=== PATIENT | female | born 1970 ===

== ENCOUNTER 2017-04-14 09:53 | Day surgery (SDC) | payer SELFPAY ==
[2016-12-14 09:47] VITALS: BMI 37.7
[~2017-04-14 09:53] MED LIST: Lidocaine 1%/Epinephrine 1:100000 30 ml vial IJ STA
[2017-04-14] MEDS ORDERED: ceFAZolin IV 1 gm in Dextrose 1 GM/50 ML BAG IVPB ONE (10:53)
[2017-04-14] MEDS ORDERED: Bupivacaine HCl 0.25% PF (10 ml) Inj ONE (10:53)
[2017-04-14] MEDS ORDERED: Lidocaine/Epinephrine 1% 1:100000 10 ML IJ ONE (10:54)
[2017-04-14] MEDS ORDERED: ceFAZolin IV 2 gm in Dextrose 2 GM/50 ML BAG IVPB ONE (10:54)
[2017-04-14] MEDS ORDERED: Lactated Ringer's 1,000 ML IV ONE (12:21)
[2017-04-14] MEDS ORDERED: Propofol 10 mg/ml Inj (20 ML) ONE (12:33)
[2017-04-14] MEDS ORDERED: Midazolam 2 MG/2 ML VIAL ONE (12:33)
--- NOTE | 2017-04-14 13:31 | PCM.SURG1 ---
Surgeon's Initial Post Op Note - Surgeon's Notes Surgeon: Dr Morfin Refractive Surgeon: Kirstin Segundo, PGY-1 Pre-Operative Diagnosis: Skin lesion of forehead and skin lesion of Right medial thigh Operative Findings: see op report Post-Operative Diagnosis: Skin lesion of forehead and skin lesion of Right medial thigh Operation Performed: Excision of Skin lesion of forehead and Excision of skin lesion of Right medial thigh Specimen/Specimens Removed: Forehead skin lesion and Right medial thigh lesion Estimated Blood Loss: EBL {In ML}: 30 Blood Products Given: N/A Drains Used: No Drains Post-Op Condition: Good Date of Surgery/Procedure: 04/14/17 Time of Surgery/Procedure: 13:31
[2017-04-14] MEDS ORDERED: Oxycodone/Acetaminophen 5/325 mg Tab PO PRN (13:32)
[2017-04-14 16:10] VITALS: BP 116/76; PULSE 68; RESP 18; TEMP 97.6; O2SAT 100
--- NOTE | 2017-04-16 08:06 | OP ---
PROCEDURE DATE: 04/14/2017 PREOPERATIVE DIAGNOSES: 1. Skin lesion of mid forehead scalp area. 2. Skin lesion of right mid inner thigh. POSTOPERATIVE DIAGNOSES: 1. Skin lesion of mid forehead scalp area. 2. Skin lesion of right mid inner thigh. PROCEDURES: 1. Excision of the skin lesion of mid forehead scalp area, 3 x 2 cm size. 2. Layered closure of the wound of forehead, 3 x 2 cm size. 3. Excision of the skin lesion of right mid thigh, 2 x 1 cm size. 4. Layered closure of the wound, 2 x 1 cm size of the right thigh. SURGEON: Arturo Morfin MD [employer] SOFTWARE CONSULTANT: Dr. Lorena Segundo TYPE OF ANESTHESIA: General anesthesia with LMA. ESTIMATED BLOOD LOSS: Around 30 mL. DRAIN: None. PATHOLOGY: 1. The forehead skin lesion was sent for the pathology. 2. Right thigh skin lesion was sent for the pathology. COMPLICATIONS: None. INTRAOPERATIVE FINDINGS: 1. The patient had irregular shaped 3 x 2 cm skin lesion of the mid forehead scalp area. 2. The patient had approximately 2 x 1 cm right thigh skin lesion. DESCRIPTION OF PROCEDURE: On intraoperative steps, this is a 46-year-old female who was diagnosed with forehead skin lesion as well as the right thigh skin lesion. The patient was consented for an excision, brought to the OR, placed supine on an operating table. After induction of anesthesia, the forehead and the right thigh was prepped and draped in the usual sterile fashion. The local anesthesia was injected and an elliptical shaped incision was made to remove the 3 x 2 cm irregular skin lesion in full thickness, and it was sent off the table for the Pathology. Proper hemostasis was achieved. Now, the upper and lower flaps were mobilized due to the large skin defect and first 2-0 Vicryl was used to close the defect. Then 4-0 Monocryl was used for the skin and another layer of the 5-0 nylon was used to do the multilayer closure and after that the dry sterile dressing was applied. Now, the elliptical incision was made surrounding the skin lesion of right mid thigh. After incising skin and subcutaneous tissue, the skin lesion was completely excised from underlying subcutaneous tissue and sent off the table for the Pathology. The wound was irrigated and the wound was closed in 2 layers, the subcu with 2-0 Vicryl, skin with 4-0 Monocryl and dry sterile dressing was applied. The patient tolerated the procedure well. Count of the instrument and gauze was correct. There was no apparent complication. The patient was extubated in the OR, sent to the postanesthesia care unit in stable condition. Arturo Morfin MD
== END 2017-04-14 16:34 | disposition home or self-care (01) ==
LOC: C.SDS 09:53
PROVIDERS: ATTEND Surgery Surgical Critical Care
DX: L82.1 Other seborrheic keratosis (principal); D18.01 Hemangioma of skin and subcutaneous tissue
CPT/HCPCS: 11402; 11423; 12032; 88305; J0690; J2250; J2704; J3010; J7120

== ENCOUNTER 2017-10-11 10:49 | Day surgery (SDC) | payer SELFPAY ==
[2017-10-06 09:22] VITALS: BMI 35.4
[~2017-10-11 10:49] MED LIST changes: +Bupivacaine 0.25% 20 ML INJ IJ ONE; -Lidocaine 1%/Epinephrine 1:100000 30 ml vial IJ STA; +Lidocaine/Epinephrine 1% 1:100000 10 ML IJ ONE; +ceFAZolin IV 1 gm in Dextrose 0 GM/0 ML BAG IVPB ONE
[2017-10-11] MEDS ORDERED: Midazolam 2 MG/2 ML VIAL ONE (11:43)
[2017-10-11] MEDS ORDERED: Propofol 10 mg/ml Inj (20 ML) ONE ×2 (11:43→13:15)
[2017-10-11] MEDS ORDERED: ceFAZolin IV 2 gm in Dextrose 2 GM/50 ML BAG IVPB ONE (12:01)
[2017-10-11] MEDS ORDERED: Lidocaine Hydrochloride 10 ML INJ ONE (12:26)
[2017-10-11] MEDS ORDERED: Oxycodone/Acetaminophen 5/325 mg Tab PO PRN (13:37)
--- NOTE | 2017-10-11 13:37 | PCM.SURG1 ---
Surgeon's Initial Post Op Note - Surgeon's Notes Surgeon: Dr. Morfin Sfd[employer] Technical Architect: Dr. Mary LIPSCOMB, Dr. Chan PGY3 Type of Anesthesia: General Endo Anesthesia Administered By: Dr. Kerns Pre-Operative Diagnosis: Right face skin lesion Operative Findings: see operative report Post-Operative Diagnosis: see operative report Operation Performed: excision of right face skin lesion Specimen/Specimens Removed: skin lesion Estimated Blood Loss: EBL {In ML}: 15 Blood Products Given: N/A Drains Used: No Drains Post-Op Condition: Good Date of Surgery/Procedure: 10/11/17 Time of Surgery/Procedure: 12:00
[2017-10-11] MEDS ORDERED: HYDROmorphone 0.5 mg/0.5 ml ISec IVP PRN (13:38)
[2017-10-11 14:33] VITALS: RESP 16
[2017-10-11 18:11] VITALS: BP 127/79; PULSE 82; TEMP 97.9; O2SAT 100
--- NOTE | 2017-10-12 01:24 | OP ---
Copied To: Arturo Morfin MD Attending MD: Arturo Morfin MD PROCEDURE DATE: 10/11/2017 PREOPERATIVE DIAGNOSIS: Right face lesion, 2 x 2 cm in size. POSTOPERATIVE DIAGNOSIS: Right face lesion, 2 x 2 cm in size. PROCEDURE: Wide local excision of right face lesion with Rhomboid flap closure. SURGEON: Arturo Morfin MD OPERATOR HELPER: Robin Chan, PGY-3; ELDER Baxter. ANESTHESIA: General endotracheal tube anesthesia. ESTIMATED BLOOD LOSS: Around 10 mL. DRAINS: None. PATHOLOGY: The right face skin lesion was sent for the pathology. COMPLICATIONS: None. INTRAOPERATIVE FINDINGS: The patient had a 2 x 2 cm circular lesion on the right upper face and on intraoperative steps, this 47-year-old female was diagnosed with right face lesion and the patient was consented for the excision of the right face lesion, brought to the OR, placed on the operating table after induction of the anesthesia. The right side of the face was prepped and draped in usual sterile fashion. The eye was protected properly after local anesthesia was injected and face lesion was marked and then the rhomboid flap was also marked. First incision was made and full-thickness skin was excised with underlying subcutaneous tissue. Now, another incision was made to create the rhomboid flap, and the rhomboid flap was mobilized and it was sutured with edge off the defects and proper wound closure was done, two-layer wound closure was done; the subcu with 3-0 Vicryl and skin with 4-0 Monocryl, and dry sterile dressing was applied. The patient tolerated the procedure well. The patient was extubated in the OR and sent to the postanesthesia care unit in stable condition. Arturo Morfin MD [facility]
== END 2017-10-11 17:30 | disposition home or self-care (01) ==
LOC: C.SDS 10:49
PROVIDERS: ATTEND Surgery Surgical Critical Care
DX: L82.1 Other seborrheic keratosis (principal); L81.9 Disorder of pigmentation, unspecified
CPT/HCPCS: 11443; 88305; J0690; J1885; J2250; J2704; J3010

== ENCOUNTER 2018-03-22 15:28 | Outpatient (CLI) | payer SELFPAY | END 2018-03-22 15:29 | disposition home or self-care (01) | LOC: C.USIC 15:28 | DX: N20.0 Calculus of kidney (principal); N28.1 Cyst of kidney, acquired ==

== ENCOUNTER 2018-03-30 10:56 | Outpatient (CLI) | payer SELFPAY | END 2018-03-30 10:57 | disposition home or self-care (01) | LOC: C.LAB 10:56 | DX: N39.0 Urinary tract infection, site not specified (principal) ==